=== PATIENT | female | born 1980 | race Caucasian/White ===

== ENCOUNTER 2024-05-14 16:00 | Emergency (ER) | payer OTHER ==
[~2024-05-14] VITALS: Ht 185.4 cm; Wt 80.0 kg
[~2024-05-14 16:00] MED LIST: AMOX/K CLAV875 M1 PO; CHERATUSSIN OR; NO
[2024-05-14 16:39] VITALS: BP 119/84
[2024-05-14 16:45] VITALS: BP 128/85
[2024-05-14] MEDS ORDERED: ONDANSETRON HCl 4 MG/2 ML SDV IV ONE (16:50)
[2024-05-14] MEDS ORDERED: SODIUM CHLORIDE 0.9% 1,000 ML IV ONE (16:50)
[2024-05-14 16:59] VITALS: BP 126/90
[2024-05-14 17:15] VITALS: BP 138/95
[2024-05-14 17:17] LABS: URINE BILIRUBIN - DIPSTICK Negative (NEGATIVE); URINE BLOOD DIPSTICK Negative (NEGATIVE); URINE COLOR Yellow; URINE GLUCOSE - DIPSTICK >=1000 mg/dL (NEGATIVE); URINE KETONE 15 mg/dL (NEGATIVE); URINE LEUK ESTERASE Negative (NEGATIVE); URINE NITRITE - DIPSTICK Negative (Negative); URINE PROTEIN - DIPSTICK 30 mg/dL (NEG-TRACE); URINE UROBILINOGEN - DIPSTICK 0.2 E.U./dL (0.2)
[2024-05-14 17:18] LABS: BASO% 0.5 % (0-3); EOS% 0.7 % (0-8); HEMATOCRIT 43.2 % (37.0-47.0); HEMOGLOBIN 14.9 g/dl (12.0-16.0); IMMATURE GRANULOCYTES 0.7 % (0.0-5.0); LYMPH% 27.4 % (15-41); MEAN CELL VOLUME 89.4 fL CALC (80.0-100.0); MEAN CORPUSCULAR HGB 30.8 pG CALC (26.0-32.0); MEAN CORPUSCULAR HGB CONC 34.5 g/dL CAL (32.0-36.0); MONO% 5.3 % (2-13); NEUT# 3.73 thou/uL (2.00-7.15); NEUT% 65.4 % (42-76); RED BLOOD COUNT 4.83 mill/uL (4.20-5.60); RED CELL DISTRI WIDTH 12.4 % (11.5-15.5)
[2024-05-14 17:29] LABS: URINE AMORPH SEDIMENT MODERATE hpf (NONE-FEW); URINE RBC 0-2 RBC/hpf (0-5); URINE WBC 0-2 WBC/hpf (0-5)
[2024-05-14 17:30] LABS: URINE TRANSITIONAL EPI. CELLS FEW hpf
[2024-05-14 17:32] LABS: URINE SQUAMOUS EPITHELIAL CELL MANY EPI/hpf (0-FEW)
[2024-05-14 17:34] LABS: URINE HYALINE CAST FEW lpf (NONE-RARE)
[2024-05-14 17:35] LABS: ALBUMIN 4.6 g/dL (3.2-5.0); CREATININE 1.1 mg/dL (0.5-1.0); POTASSIUM 4.6 mmol/l (3.5-5.1); TOTAL PROTEIN 8.1 g/dL (6.3-8.2)
[2024-05-14 17:36] LABS: BILIRUBIN, TOTAL 0.6 mg/dL (0.02-1.3)
[2024-05-14] MEDS ORDERED: ZPAK PO (19:03)
[2024-05-14] MEDS ORDERED: AZELASTINE HYDR1 SPR (19:03)
[2024-05-14] MEDS ORDERED: LEVOCETIRIZINE D5 MG PO (19:03)
[2024-05-14] MEDS ORDERED: ZOFRAN4 MG/TAB PO (19:03)
[2024-05-14] MEDS ORDERED: BENZONATATE200 MG PO (19:08)
[2024-05-14 19:26] VITALS: BP 138/95
== END 2024-05-14 19:26 | disposition home or self-care (01) | DRG 153 ==
LOC: ED 16:00
PROVIDERS: Nurse Practitioner
DX: J06.9 Acute upper respiratory infection, unspecified (principal); E11.9 Type 2 diabetes mellitus without complications; Z20.822 Contact with and (suspected) exposure to COVID-19
CPT/HCPCS: J2405